=== PATIENT | male | born 1955 | race Caucasian/White ===

== ENCOUNTER 2019-04-05 08:20 | Inpatient (IN) ==
--- NOTE | 2019-04-05 09:16 | Diag Imaging Result Doc PS360 ---
CHEST-2 VIEWS - 04/05/2019 INDICATION: cough COMPARISON: 11/23/2017 FINDINGS: There is a large right pleural effusion, with about two thirds of the mid thorax occupied. The remaining right lung demonstrates diffuse infiltrate that is nonspecific. There is a small focal infiltrate in the lateral left midlung. No large left pleural effusion. No mediastinal shift. Heart size is grossly normal. IMPRESSION: Nonspecific findings. Electronically signed by Baldo Brown 04/05/2019 9:14 AM
[2019-04-05] MEDS ORDERED: NS 1,000 ML IV ONE (10:11)
[2019-04-05] MEDS ORDERED: ZOSYN 4.5 GM in NS 100 ML IV ONE (10:11)
[2019-04-05] MEDS ORDERED: DUONEB (A & A) INH ONE (10:11)
[2019-04-05 11:17] LABS: HEMATOCRIT 34.4 % (42.0-52.0); HEMOGLOBIN 11.1 g/dL (14.0-18.0); LYMPH# 0.54 X1000 (1.2-3.4); LYMPH% 9.5 % (20.5-51.1); MCH 29.6 PG (27-31); MCHC 32.3 g/dL (33-37); MCV 91.7 FL (81-99); MONO# 0.43 X1000 (0.11-0.59); MONO% 7.6 % (1.7-9.3); MPV 10.5 FL (7.4-10.4); NEUT# 4.72 X1000 (1.4-6.5); NEUT% 82.9 % (42.2-75.2); PLT 153 X1000 (130-400); RBC 3.75 XMIL (4.7-6.1); WBC 5.69 X1000 (4.8-10.8)
[2019-04-05 11:28] LABS: INR 1.26
--- NOTE | 2019-04-05 11:47 | EKG Report ---
Test Performed on : 04/05/2019 11:14:24 AM Test Reason : cough Blood Pressure : / mmHG Vent. Rate : 098 BPM Atrial Rate : 098 BPM P-R Int : 114 ms QRS Dur : 092 ms QT Int : 324 ms P-R-T Axes : 043 081 -37 degrees QTc Int : 413 ms Normal sinus rhythm. Possible Left atrial enlargement Nonspecific T wave abnormality Abnormal ECG When compared with ECG of 18-NOV-2017 23:36, No significant change was found Unconfirmed Result
[2019-04-05 11:53] LABS: ESTIMATED GFR > 60
[2019-04-05 11:59] LABS: AGAP 10; ALB/GLOB RATIO 1.1; ALBUMIN 3.7 g/dL (3.5-5.0); ALKALINE PHOSPHATASE 500 U/L (32-122); BUN 9 mg/dL (8-22); CALCIUM 8.9 mg/dL (8.8-10.2); CHLORIDE 82 mmol/L (98-107); COSMO 245; CREATININE 0.4 mg/dL (0.7-1.2); GLUCOSE 110 mg/dL (70-104); GOT 26 U/L (10-34); GPT 20 U/L (10-44); POTASSIUM 4.2 mmol/L (3.5-5.1); SODIUM 122 mmol/L (136-145); TCO2 30 mmol/L (25-35); TOTAL BILIRUBIN 0.88 mg/dL (0.20-1.00); TOTAL PROTEIN 7.2 g/dL (6.3-8.3)
[2019-04-05 12:50] LABS: URINE SOURCE CATH
[2019-04-05 12:52] LABS: BILIRUBIN URINE NEGATIVE (NEGATIVE); BLOOD URINE NEGATIVE (NEGATIVE); COLOR YELLOW; GLUCOSE URINE NEGATIVE (NEGATIVE); KETONE URINE 20 mg/dL (NEGATIVE); LEUKOCYTES URINE NEGATIVE (NEGATIVE); NITRITE URINE NEGATIVE (NEGATIVE); PH URINE 7.5; PROTEIN URINE TRACE mg/dL (NEGATIVE); SP GRAVITY URINE 1.016; TURBIDITY URINE HAZY (CLEAR); UROBILINOGEN URINE 3 mg/dL (NORMAL)
[2019-04-05 13:04] LABS: UR EPITHELIAL CELLS <10 /HPF (<10); URINE BACTERIA NEGATIVE /HPF; URINE RBC <10 /HPF (<10); URINE WBC <10 /HPF (<10)
[2019-04-05 13:08] LABS: URINE YEAST NONE SEEN
[2019-04-05 13:09] LABS: URINE CASTS NONE SEEN; URINE CRYSTALS NONE SEEN
[2019-04-05] MEDS ORDERED: ASPIRIN PR ONE (13:11)
[2019-04-05] MEDS ORDERED: LASIX IV ONE (13:11)
--- NOTE | 2019-04-05 13:25 | PROVIDER DOCUMENTATION ---
This chart was entered by Susana Dave Scribe, acting as scribe for Elver Ordonez MD. HPI-Respiratory General - General Chief Complaint: Cold Symptoms Stated Complaint: COUGHING,LOW GRADE FEVER,INCREASE PULSE Time Seen by Provider: 04/05/19 09:02 Source: patient, other ([facility] premium representative) Allergies/Adverse Reactions: Patient Allergies Allergy/AdvReac Type Severity Reaction Status Date / Time No Known Allergies Allergy Verified 05/14/18 14:24 Home Medications: Home Medication List Medication Instructions Recorded Confirmed Last Taken Type Calcium Citrate/Vitamin D3 1 each PEG DAILY 03/02/16 05/14/18 05/18/18 08:00 History [Citracal + D Maximum Caplet] Doxepin [Sinequan] 50 mg PEG QPM 12/04/16 05/14/18 05/18/18 21:00 History Metoclopramide [Reglan Liquid] 5 mg PEG 4XDAY 12/04/16 05/14/18 12/04/16 08:00 History Ranitidine HCl [Zantac] 150 mg PEG BID 12/04/16 05/14/18 05/18/18 21:00 History Guaifen/Dextromethorphan/PE 180 ml PEG PRN PRN 11/18/17 05/14/18 05/18/18 21:00 History [Mucinex Fast-Max Congest-Cough] Loratadine [Claritin] 10 mg PEG DAILY 11/18/17 05/14/18 05/18/18 08:00 History Montelukast Sodium [Singulair] 10 mg PEG DAILY 11/18/17 05/14/18 05/18/18 08:00 History Quetiapine Fumarate [Seroquel] 25 mg PEG QHS 11/18/17 05/14/18 05/18/18 21:00 History Tamsulosin [Flomax] 0.4 mg PO DAILY 11/18/17 05/14/18 05/18/18 08:00 History Albuterol 2.5MG/Ipratrop 0.5MG 3 ml INH Q6H PRN PRN #60 neb 11/26/17 05/14/18 05/18/18 08:00 Rx [Duoneb (A & A)] Alendronate [Fosamax] 70 mg PEG Q7D@00 05/14/18 05/14/18 05/18/18 21:00 History Furosemide [Lasix] 20 mg PEG DAILY 05/14/18 05/14/18 05/18/18 08:00 History Potassium Chloride 10% Liquid 10 meq PEG DAILY 05/14/18 05/14/18 05/18/18 08:00 History - History of Present Illness-Resp Nature of Presenting Problem: Pt is a 63 yowm with special needs brought to the ED with c/o cough that with disability cannot is not productive, congestion, increased resp. rate, increased pulse, low grade temp., no urine output since 12pm 03/04/2019, lethargic and only taking half feedings. Pt has arm and leg contractions and uses a wheelchair. Pt is thin, pale and with dry skin but nontoxic in appearance. Severity in ED: reports: mild Onset/Duration: reports: abrupt, 24 hours ago Timing: reports: still present, getting worse Exposure: reports: unknown cause Cough Quality/Degree: reports: moderate, productive cough (with disability cannot cough up sputum) Current Respiratory Medication Therapy: Initiated see nurses note Modifying Factors: worse with: coughing Associated Symptoms: reports: cough, fever/chills, nasal congestion Similar Symptoms Previously?: No Recently seen or treated by another doctor?: Yes (nurse at [facility] this am) Review of Systems - Adult - REVIEW OF SYSTEMS - ADULT ROS:: [facility] premium representative Constitutional: reports: see HPI, fever Eyes: reports: no symptoms reported Ears, Nose, Mouth & Throat: reports: see HPI, other (congestion) Cardiovascular: reports: see HPI. denies: syncope Respiratory: reports: cough, wheezing Gastrointestinal: denies: diarrhea, vomiting Genitourinary: reports: no symptoms reported Musculoskeletal: reports: no symptoms reported Integumentary: reports: no symptoms reported Neurological: reports: no symptoms reported Psychiatric: reports: no symptoms reported Endocrine: reports: no symptoms reported Hematologic/Lymphatic: reports: no symptoms reported Allergic/Immunologic: reports: no symptoms reported Past History - Adult - PAST MEDICAL HISTORY-ADULT Review of Records: reports: Old Records Reviewed, Nursing Assessment Review, Medications Reviewed, Social history reviewed & non-contributory. Major Childhood Illnesses: reports: denies history Cardiovascular: reports: HTN Respiratory: reports: other (hx aspiration) Gastrointestinal: reports: GERD, other Obstetrical/Gynecological: reports: denies history Genitourinary: reports: denies history Musculoskeletal: reports: denies history Neurological: reports: other Endocrine/Immune: reports: denies history Other Conditions: reports: denies history - PRIOR SURGERIES/PROCEDURES Surgical/Procedure History: reports: other (PEG) - IMMUNIZATION STATUS Childhood Immunizations: See Nurse Assessment Flu Vaccine: See Nurse Assessment - FAMILY HISTORY Family History: reviewed, not pertinent - SOCIAL HISTORY Smoking: non-smoker Living Situation: care facility ([facility]) Physical Exam-General - PHYSICAL EXAM-ADULT Initial Vital Signs Reviewed: Yes (HR 104) - CONSTITUTIONAL General Appearance: alert, no apparent distress, thin, lethargic - EYES Eyes: PERRL/EOMI - HEAD, EARS, NOSE, MOUTH & THROAT HENMT: normocephalic/atraumatic - NECK Neck: normal inspection - RESPIRATORY Respiratory: rhonchi (all lobes), wheezing (with aspiration and inspiration) - CARDIOVASCULAR Cardiovascular: normal peripheral pulses, tachycardia, other (tachypneic) - GASTROINTESTINAL (ABDOMEN) Abdominal Exam: non tender, other (picc tube LUQ) - MUSCULOSKELETAL Extremity: other (arm and leg contractions) - SKIN Integumentary: warm/dry, pallor - PSYCHIATRIC Psych/Mental Status: other (pt is intellectuallly disabled) Progress - PLAN OF CARE/RESULTS Progress/Plan/Lab Results: Vital Signs - 8 hr 04/05/19 08:38 04/05/19 10:59 Temperature 99.0 F Pulse Rate 104 H 98 H Respiratory Rate 19 18 Blood Pressure 117/74 O2 Sat by Pulse Oximetry 96 94 L 04/05/19 08:44 Influenza Screen - Final Nasopharyngeal Laboratory Results - last 24 hr 04/05/19 04/05/19 04/05/19 11:00 11:00 11:00 WBC RBC Hgb Hct MCV MCH MCHC RDW Std Deviation Plt Count MPV Immature Gran % (Auto) Neut % (Auto) Lymph % (Auto) [place] % (Auto) Eos % (Auto) Baso % (Auto) Immature Gran # (Auto) Neut # (Auto) Lymph # (Auto) [place] # (Auto) Eos # (Auto) Baso # (Auto) PT INR Sodium 122 L Potassium 4.2 Chloride 82 L Carbon Dioxide 30 Anion Gap 10 BUN 9 Creatinine 0.4 L Estimated GFR/1.73 m2 > 60 BUN/Creatinine Ratio 23 Glucose 110 H Calculated Osmolality 245 Calcium 8.9 Total Bilirubin 0.88 AST 26 ALT 20 Alkaline Phosphatase 500 H Troponin T High Sens Pmc-Z-Svzpchxsqnd Pept 584 H Total Protein 7.2 Albumin 3.7 Globulin 3.5 Albumin/Globulin Ratio 1.1 Plasma Lactate 2.1 Urine Source Urine Color Urine Turbidity Urine pH Ur Specific [place] Urine Protein Ur Glucose (Stick) Ur Ketones (Stick) Urine Blood Urine Nitrite Urine Bilirubin Urobilinogen Dipstick Urine Leukocytes Urine WBC (Auto) Urine RBC (Auto) U Epithel Cells (Auto) Urine Bacteria (Auto) Urine Crystals Small Round Cells Urine Casts Urine Yeast-like Cells 04/05/19 04/05/19 04/05/19 11:00 11:00 11:00 WBC 5.69 RBC 3.75 L Hgb 11.1 L Hct 34.4 L MCV 91.7 MCH 29.6 MCHC 32.3 L RDW Std Deviation 14.0 Plt Count 153 MPV 10.5 H Immature Gran % (Auto) 0.0 Neut % (Auto) 82.9 H Lymph % (Auto) 9.5 L [place] % (Auto) 7.6 Eos % (Auto) 0.0 Baso % (Auto) 0.0 Immature Gran # (Auto) 0.00 Neut # (Auto) 4.72 Lymph # (Auto) 0.54 L [place] # (Auto) 0.43 Eos # (Auto) 0.00 Baso # (Auto) 0.00 PT 16.0 INR 1.26 Sodium Potassium Chloride Carbon Dioxide Anion Gap BUN Creatinine Estimated GFR/1.73 m2 BUN/Creatinine Ratio Glucose Calculated Osmolality Calcium Total Bilirubin AST ALT Alkaline Phosphatase Troponin T High Sens 35 H Cij-O-Leauivwxcwa Pept Total Protein Albumin Globulin Albumin/Globulin Ratio Plasma Lactate Urine Source Urine Color Urine Turbidity Urine pH Ur Specific [place] Urine Protein Ur Glucose (Stick) Ur Ketones (Stick) Urine Blood Urine Nitrite Urine Bilirubin Urobilinogen Dipstick Urine Leukocytes Urine WBC (Auto) Urine RBC (Auto) U Epithel Cells (Auto) Urine Bacteria (Auto) Urine Crystals Small Round Cells Urine Casts Urine Yeast-like Cells 04/05/19 12:40 WBC RBC Hgb Hct MCV MCH MCHC RDW Std Deviation Plt Count MPV Immature Gran % (Auto) Neut % (Auto) Lymph % (Auto) [place] % (Auto) Eos % (Auto) Baso % (Auto) Immature Gran # (Auto) Neut # (Auto) Lymph # (Auto) [place] # (Auto) Eos # (Auto) Baso # (Auto) PT INR Sodium Potassium Chloride Carbon Dioxide Anion Gap BUN Creatinine Estimated GFR/1.73 m2 BUN/Creatinine Ratio Glucose Calculated Osmolality Calcium Total Bilirubin AST ALT Alkaline Phosphatase Troponin T High Sens Ilu-J-Ttahqkvdwxm Pept Total Protein Albumin Globulin Albumin/Globulin Ratio Plasma Lactate Urine Source CATH Urine Color YELLOW Urine Turbidity HAZY Urine pH 7.5 Ur Specific [place] 1.016 Urine Protein TRACE A Ur Glucose (Stick) NEGATIVE Ur Ketones (Stick) 20 A Urine Blood NEGATIVE Urine Nitrite NEGATIVE Urine Bilirubin NEGATIVE Urobilinogen Dipstick 3 A Urine Leukocytes NEGATIVE Urine WBC (Auto) <10 Urine RBC (Auto) <10 U Epithel Cells (Auto) <10 Urine Bacteria (Auto) NEGATIVE Urine Crystals NONE SEEN Small Round Cells Not Reportable Urine Casts NONE SEEN Urine Yeast-like Cells NONE SEEN Orders Category Date Time Status Higgins Cath Insertion ORDERED Care 04/05/19 11:11 Active Nursing- Obtain EKG once Care 04/05/19 10:11 Active CHEST-2 VIEWS [RAD] Stat Exams 04/05/19 08:44 Completed BLOOD CULTURE [BLDCUL] Stat Lab 04/05/19 11:18 Results CBC WITH ELECTRONIC DIFF [HEME] Stat Lab 04/05/19 11:00 Completed COMPREHENSIVE METABOLIC PANEL [CHEM] Stat Lab 04/05/19 11:00 Completed DIRECT STREP Stat Lab 04/05/19 08:44 Ordered INFLUENZA SCREEN A/B Stat Lab 04/05/19 08:44 Completed LACTATE, PLASMA [CHEM] Stat Lab 04/05/19 11:00 Completed PRO B-NATRIURETIC PEPTIDE Stat Lab 04/05/19 11:00 Completed PROTIME WITH INR [COAG] Stat Lab 04/05/19 11:00 Completed TROPONIN T HIGH SENSITIVITY Stat Lab 04/05/19 11:00 Completed URINALYSIS W/POSS RFLX CULT [URINALYSIS] Stat Lab 04/05/19 12:40 Completed URINE MANUAL MICROSCOPIC [URINALYSIS] Stat Lab 04/05/19 12:40 Completed 0.9% Sodium Chloride Inj [Ns] 1,000 ml Med 04/05/19 10:11 Discontinued IV 999 mls/hr Albuterol 2.5MG/Ipratrop 0.5MG [Duoneb (A & A)] Med 04/05/19 10:11 Discontinued 3 ml INH NOW ONE Aspirin Med 04/05/19 13:11 Discontinued 300 mg AK NOW ONE Furosemide [Lasix] Med 04/05/19 13:11 Discontinued 20 mg IV NOW ONE Piperacillin/Tazobactam [Zosyn] 4.5 gm Med 04/05/19 10:11 Discontinued 0.9% Sodium Chloride Inj [Ns] 100 ml IV NOW Aerosol Treatments Routine Oth 04/05/19 10:12 Completed Aerosol Treatments Stat Oth 04/05/19 10:12 Completed EKG [EKG] Stat Ther 04/05/19 10:11 Draft Result Diagrams: 04/05/19 11:00 04/05/19 11:00 - REASSESSMENT Reassessment #1 Time Reassessed: 13:14 Status: improving (GIven duoneb, Oxygen, zosyn for PNE, also given lasix for chf exacerbation and asa suppository) - EKG 1 Time of EKG reading by physician:: 11:24 EKG Read and Signed by:: Elver Ordonez EKG Interpretation (*Must complete 3 of following elements*): Abnormal Rate: 98 Rhythm: NSR Comments: LAE; LAD high voltage - XRAY 1 XRAY Study: Chest Impression: See EMR Report (CHEST-2 VIEWS - 04/05/2019 INDICATION: cough COMPARISON: 11/23/2017 FINDINGS: There is a large right pleural effusion, with about two thirds of the mid thorax occupied. The remaining right lung demonstrates diffuse infiltrate that is nonspecific. There is a small focal infiltrate in the lateral left midlung. No large left pleural effusion. No mediastinal shift. Heart size is grossly normal. IMPRESSION: Nonspecific findings. Electronically signed by Baldo Brown 04/05/2019 9:14 AM 04/05/19 0914 Interpreting Physician: Baldo Brown MD Dictated Date/Time: 04/05/19 0911 cc: Elver Ordonez MD; Arnoldo Horvath MD) - CONSULTS/PCP/HOSPITALIST Notification #1 *Consult/PCP/Hospitalist*: Arnoldo Horvath paged at 1313 Time Discussed: 13:20 Consult Disposition: Admit (requested I write admission orders) Departure - Departure Date of Disposition Decision: 04/05/19 Time of Disposition Decision: 13:14 DIAGNOSIS: Hyponatremia syndrome, Do not resuscitate status Pneumonia, aspiration Qualifiers: Aspiration pneumonia type: due to gastric secretions Laterality: bilateral Lung location: unspecified part of lung Qualified Code(s): J69.0 - Pneumonitis due to inhalation of food and vomit CHF exacerbation Qualifiers: Heart failure type: diastolic Qualified Code(s): I50.33 - Acute on chronic diastolic (congestive) heart failure Disposition: ADMITTED INPATIENT 09 Certified Medical Emergency: Emergent Condition: Stable Referrals and Follow-Ups: Arnoldo Horvath MD [Primary Care Provider] - - Critical Care Note This patient required my direct & personal management of CC.: Yes Total Time (mins): 35 Critical Care Statement: This patient required my direct personal management to treat or rule out processes, the absence of which, could potentiallly result in sudden, clinically significant life or limb threatening deterioration. Attestation - Physician/ PILAR Attestation Patient care was provided by Advanced Practice Provider:: No The physician spent face to face time with patient:: Yes Advanced Practice Provider documentation review:: Supervising physician onsite and consulted in the evaluation and care of this patient. The physician did have a face to face encounter with the patient. This chart was documented by the indicated scribe, (Susana Dave, Ever[place]) and accurately reflects the services I performed and decisions made by me, Elver Ordonez MD, as attested by the provider's signature.
[2019-04-05] MEDS ORDERED: ZOFRAN IV PRN (13:26)
[2019-04-05] MEDS: LASIX IV SCH (13:45)
[2019-04-05] MEDS: ZOSYN 3.375 GM in NS 50 ML IV SCH ×2 (16:00→22:13)
[2019-04-05] MEDS: DUONEB (A & A) INH SCH ×3 (16:05→23:11)
--- NOTE | 2019-04-05 18:15 | HISTORY AND PHYSICAL ---
CHIEF COMPLAINT: Lethargy and cough. HISTORY OF PRESENT ILLNESS: This is one of numerous [facility] admissions for this 63-year- old white man with mental retardation, and mostly bedridden. Over the past few days, he has become weaker and lethargic. He receives tube feedings daily. He has had a moderate cough for a couple of days. He has been to the emergency room on 1 other occasion a few days ago. Today he presented with continued weakness. Chest x-ray showed a right pleural effusion and probable pneumonia. Also, there were signs of congestive heart failure. LABORATORY: Indicated white blood count 5700, hematocrit 34.4. ProBNP 584. Troponin T 35, elevated. Alkaline phosphatase was elevated to 500. BUN and creatinine were 9 and 0.4 respectively. Sodium was 122. He is admitted for further evaluation and treatment, including intravenous Lasix and intravenous antibiotics. Discussion is made with caregivers, and a decision had been previously made to make him a DO NOT RESUSCITATE level 1. He was in the emergency room 02/04/2019 after pulling out his feeding tube. This happened on several other occasions. He had a right pleural effusion as early as January 2016. There has been no recent surgery. PRESENT MEDICATIONS: Albuterol every 6 hours, alendronate 70 mg per PEG once weekly, Citracal plus D 1 daily, doxepin 50 mg per PEG daily every evening., Nexium 20 mg 1 daily, Lasix 20 mg daily, Claritin 10 mg 1 daily, Raglan 5 mg per PEG 4 times daily, mirtazapine 15 mg at bedtime, MiraLAX 17 g daily, potassium chloride 10 mEq daily, Seroquel 25 mg at bedtime, Requip 0.5 mg at bedtime, tamsulosin 0.4 mg daily. ALLERGIES: None known. REVIEW OF SYSTEMS: Progressive weight loss and malnutrition over the past several months. He has had inflammatory pericarditis in the past. He is in a senior living for retarded adults. Both of his parents have . PHYSICAL EXAMINATION: VITAL SIGNS: Temperature 98.5, heart rate 98, respirations 17, blood pressure 119/66, O2 saturation on room air 95%. GENERAL: Patient is a weak, lethargic, white man, nonverbal, in no apparent distress. HEENT: Pupils equal, round, and reactive to light. Pharynx benign. NECK: Supple with no mass or lymphadenopathy. HEART: Regular in rate and rhythm with no murmur, rub or gallop. LUNGS: Decreased breath sounds at the right base. Otherwise fairly clear. ABDOMEN: Soft and scaphoid. He is cachectic with decrease in musculature over the shoulder girdles, hands, hips and legs. RECTAL: Deferred. NEUROLOGICAL: Generalized weakness. IMPRESSION: 1. Right lower lobe pneumonia. 2. Congestive heart failure. 3. Right pleural effusion. PLAN: Continue intravenous antibiotics started in the ER. Nebulizer treatments will be continued as well as tube feedings with Jevity. Lasix is given IV. Blood cultures were done in the emergency room. Urinalysis revealed no significant pyuria. cc: Arnoldo Horvath MD
[2019-04-06] MEDS: LASIX IV SCH ×2 (02:40→13:43)
[2019-04-06] MEDS: DUONEB (A & A) INH SCH ×6 (03:35→23:21)
[2019-04-06] MEDS: ZOSYN 3.375 GM in NS 50 ML IV SCH ×4 (04:14→22:14)
[2019-04-06] MEDS ORDERED: MILK OF MAGNESIA PO ONE (08:28)
[2019-04-06] MEDS ORDERED: DULCOLAX PR ONE (08:29)
--- NOTE | 2019-04-06 08:46 | PROGRESS NOTE ---
DATE: 04/06/2019 OBJECTIVE: Vital signs temperature 98.5 degrees, heart rate 95, respirations 27, blood pressure 125/71, O2 saturation 98% by mask. Patient later had 96% O2 saturation on room air. His residuals have increased on gastric contents. It was 200 mL this morning. Tube feedings are held temporarily. According to assisted caregivers, his tube feedings have been decreased recently because of increasing residuals. He also has had constipation at times in the past. Chest is clear. Abdomen soft. PLAN: KUB and right lateral decubitus chest x-ray this morning. He will be given milk of magnesia and Dulcolax suppository. Physical Therapy will be asked to assist with range of motion exercises. Dr. Goss was consulted to evaluate from a pulmonary standpoint. cc: Arnoldo Horvath MD
--- NOTE | 2019-04-06 08:50 | Diag Imaging Result Doc PS360 ---
KUB ABDOMEN - 04/06/2019 INDICATION: constipation COMPARISON: 02/04/2019 FINDINGS: There is a G-tube in good position in the stomach. There is a Higgins catheter in the urinary bladder. No bowel obstruction or free air. No constipation. IMPRESSION: No acute disease. Electronically signed by Baldo Brown 04/06/2019 8:47 AM
--- NOTE | 2019-04-06 08:52 | Diag Imaging Result Doc PS360 ---
LAT DECUBITUS CHEST VIEW-RIGHT - 04/06/2019 INDICATION: right pleural effusion TECHNIQUE: [id number] frontal chest x-ray COMPARISON: 04/05/2019 FINDINGS: There is a large right pleural effusion which has not changed in configuration. The left lung is grossly clear. IMPRESSION: No change from prior. Electronically signed by Baldo Brown 04/06/2019 8:50 AM
[2019-04-06] MEDS: REGLAN LIQUID PO SCH ×2 (17:55→22:14)
--- NOTE | 2019-04-07 00:40 | PULMONOLOGY CONSULTATION ---
DATE: 04/06/2019 REQUESTING PHYSICIAN: Dr. Arnoldo Horvath. REASON FOR CONSULTATION: Pleural effusion. HISTORY OF PRESENT ILLNESS: Mr. Jacobsen is a 63-year-old male with significant mental limitations, who is bed-bound and lives in a correction. The patient previously failed a swallowing study and is fed by a feeding tube. Over the last several days, he has had some cough and is not tolerating all of his feedings. He presented to the emergency room for additional evaluation and treatment. Chest x-ray was performed which reveals a large right-sided pleural effusion. He was admitted for additional evaluation and management. PAST MEDICAL HISTORY: 1. Mental retardation. 2. History of prior pleural effusions. 3. Pericarditis. 4. Dysphagia. 5. Aspiration status post PEG tube placement. SOCIAL HISTORY: No alcohol or tobacco. He currently resides in a correction. His family lives in [place], but by report, a nurse that cares for him is his power of senior attorney. PHYSICAL EXAMINATION: General: Reveals a frail, chronically ill-appearing male who weighs 87 pounds and has a BMI of 14.6, BP 125/69, heart rate 27, oxygen saturation 100%. The patient has been afebrile during this hospital stay. HEENT: Mild bitemporal wasting. Right pupil is dilated, left pupil is slightly constricted. Oropharynx appears dry. Neck: Supple. Chest: Reveals decreased breath sounds right base. Cardiac: Regular rate. Normal S1 normal S2. Abdomen: Soft. Extremities: Without edema. LABORATORIES: Sodium 122, potassium 4.2, chloride 82, bicarbonate 30, BUN 9, creatinine 0.4. ProBNP is 584. White blood count 5.69, hemoglobin 11.1, platelet count 153,000. IMPRESSION: A 63-year-old with: 1. Pleural effusion. 2. History of pericarditis. 3. Benign prostatic hypertrophy. The patient had a Higgins catheter placed and subsequently had out 4000 mL over 24 hours. 4. History of mild left ventricle dysfunction. DISCUSSION: A 63-year-old with problems outlined above. The patient has had prior echocardiogram, which revealed mild LV dysfunction and previous CT scan did reveal some calcium around the pericardium. 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 However, he does likely have a component of BPH and has had good urine output. The patient is not febrile and his white blood count has been normal. I would delay thoracentesis at this juncture given his relatively comfortable status. PLAN: 1. Echocardiogram. 2. CT scan of the thorax. 3. Continue Higgins catheter for BPH. 4. Additional recommendations pending hospital course. cc: MD Arnoldo Torres MD
[2019-04-07] MEDS: LASIX IV SCH ×2 (01:33→15:16)
[2019-04-07] MEDS: DUONEB (A & A) INH SCH ×5 (03:22→19:50)
[2019-04-07] MEDS: ZOSYN 3.375 GM in NS 50 ML IV SCH ×4 (04:33→22:37)
--- NOTE | 2019-04-07 09:27 | Diag Imaging Result Doc PS360 ---
EXAM: CT THORAX W/CONTRAST INDICATION: effusion TECHNIQUE: This exam was performed using automated exposure control, adjustment of mA or kV according to patient size, and/or use of iterative reconstruction technique. COMPARISON: 11/18/2017 FINDINGS: There is a large pleural fluid collection on the right that has increased in size since the previous study. There is also pleural thickening adjacent to the fluid collection indicating that it is loculated, which was not the case previously. There is associated significant atelectasis involving the right lung. There is superimposed patchy groundglass airspace infiltrate in the right upper lobe and there is also groundglass infiltrate in the lingular segment of the left upper lobe suggesting pneumonia. There is stable significant pericardial calcifications suggesting chronic pericarditis. No pericardial effusion is appreciated, however. There are a few calcified mediastinal lymph nodes suggesting prior granulomatous disease. There are other shotty borderline prominent mediastinal and hilar lymph nodes that are probably reactive. Limited views of the upper abdomen are essentially unremarkable as imaged. There are a few stable chronic thoracic spine compression deformities. There is no evidence of acute osseous abnormality. IMPRESSION: 1.Large loculated right pleural effusion with adjacent mild pleural thickening and significant right lung atelectasis. 2.Patchy groundglass airspace consolidation in the right upper lobe and the lingular segment of the left upper lobe suggesting pneumonia. 3.Stable pericardial calcification. 4.Other incidental/nonacute findings detailed above. Electronically signed by Mendzoa Banda 04/07/2019 9:24 AM
--- NOTE | 2019-04-07 10:20 | PROGRESS NOTE ---
DATE: 04/07/2019 OBJECTIVE: Vital signs: Temperature 98.1 degrees, heart rate 98, respirations 20, blood pressure 150/82, O2 saturation on room air 96%. General: The patient appears alert. Chest: Reveals decreased breath sounds, right base. CT of his chest revealed large pleural fluid collection on the right, increased in size from the previous study. There is patchy ground-glass airspace infiltrate in the right upper lobe. Dr. Goss desires to wait on thoracentesis due to him doing fairly well. He continues to tolerate tube feedings poorly with increased residual. PLAN: Increase Reglan per PEG to 10 mg q.i.d. Also, dietary consult is made to assist in tube feeding evaluation. cc: Arnoldo Horvath MD
[2019-04-07] MEDS: REGLAN LIQUID PO SCH ×4 (11:10→22:00)
[2019-04-07 11:19] LABS: AGAP 11; BUN 9 mg/dL (8-22); CALCIUM 9.1 mg/dL (8.8-10.2); CHLORIDE 86 mmol/L (98-107); COSMO 258; CREATININE 0.4 mg/dL (0.7-1.2); ESTIMATED GFR > 60; GLUCOSE 99 mg/dL (70-104); MAGNESIUM 2.2 mg/dL (1.5-2.7); PHOSPHORUS 2.9 mg/dL (2.7-4.5); POTASSIUM 3.4 mmol/L (3.5-5.1); SODIUM 129 mmol/L (136-145); TCO2 32 mmol/L (25-35)
[2019-04-07 11:51] LABS: PREALBUMIN 8.2 mg/dL (20-40)
--- NOTE | 2019-04-07 12:45 | ECHO REPORT ---
ORDER DATE: 04/07/2019 INDICATION: History of heart failure, pericarditis. FINDINGS: 1. The right atrium appears mildly enlarged. 2. Trace tricuspid regurgitation. Insufficient data to estimate RV systolic pressure. 3. The right ventricle is poorly visualized. Probable normal RV systolic function. 4. No significant pulmonic insufficiency. 5. Moderate left atrial enlargement with a volume index of 35. 6. No mitral valve prolapse. Mild mitral regurgitation. No mitral stenosis. 7. Normal LV size, end-diastolic dimension of 4.1 cm. Normal wall thicknesses with an interventricular septal thickness of 1 cm. The ejection fraction is difficult to estimate in this patient, it is estimated around 40%. Notably, the patient had an ejection fraction in 2016 of 45 to 50 percent. There is mild global hypokinesis. I would consider repetition of the study with Definity echo contrast in the future. 8. The aortic valve opens well. It is sclerotic, mild insufficiency. The valve is trileaflet. No stenosis. 9. The aorta appears normal in visualized segments. 10. No pericardial effusion is seen. There is a large pleural effusion. 11. The IVC does appear to be dilated. There was no clear evidence of collapse on this study. 12. Indeterminate diastolic function. cc: MD Evens Pool MD Robert Allen, MD
[2019-04-07] MEDS ORDERED: BLISTEX MEDICATED BERRY LIP BALM TOP PRN (15:20)
[2019-04-07 16:55] LABS: AGAP 11; ALB/GLOB RATIO 0.8; ALBUMIN 3.3 g/dL (3.5-5.0); ALKALINE PHOSPHATASE 440 U/L (32-122); BUN 10 mg/dL (8-22); CALCIUM 9.2 mg/dL (8.8-10.2); CHLORIDE 88 mmol/L (98-107); COSMO 269; CREATININE 0.3 mg/dL (0.7-1.2); ESTIMATED GFR > 60; GLUCOSE 160 mg/dL (70-104); GOT 21 U/L (10-34); GPT 20 U/L (10-44); MAGNESIUM 1.9 mg/dL (1.5-2.7); PHOSPHORUS 2.6 mg/dL (2.7-4.5); POTASSIUM 3.3 mmol/L (3.5-5.1); SODIUM 133 mmol/L (136-145); TCO2 34 mmol/L (25-35); TOTAL BILIRUBIN 0.54 mg/dL (0.20-1.00); TOTAL PROTEIN 7.6 g/dL (6.3-8.3)
[2019-04-07] MEDS: SANTYL OINT TOP SCH (18:03)
--- NOTE | 2019-04-07 21:55 | PULMONOLOGY PROGRESS NOTE ---
DATE: 04/07/2019 SUBJECTIVE: The patient is awake and alert. He does follow the examiner during examination. He is nonverbal. He appears to be comfortable. He does not appear to be in pain. OBJECTIVE: Vital Signs: The patient has been afebrile during his entire hospital stay. Blood pressure 135/71, heart rate 95 respiratory rate 18, oxygen saturation 96% on room air. HEENT: Pupils are equal. Oropharynx appears clear. Neck: Is supple. Chest: Reveals diminished breath sounds right base. Cardiac exam: S1, S2. Abdomen: Is soft. Extremities: Are without edema. LABORATORIES: CT scan of the thorax is reviewed. He has a moderate to large right-sided pleural effusion, which is slightly larger than the pleural effusion identified 11/28/2017. Current CT scan does reveal some pleural thickening, which was not seen on prior scan. CT scan also reveals pericardial calcification which has progressed between the 2 scans. Echocardiogram reveals LV dysfunction with an ejection fraction of 40%. Pleural effusion noted. No mention is made of the calcified pericardium. IMPRESSION: A 63-year-old with 1. Pleural effusion. 2. History of pericarditis, now with a partially calcified pericardium. 3. Systolic left ventricular dysfunction. 4. Probable benign prostatic hyperplasia. The patient is 5.7 L negative during this hospitalization following placement of Higgins catheter and utilization of diuretics. DISCUSSION: A 63-year-old with problems outlined above. The patient is at risk for constrictive pericarditis given the radiographic findings. However, he is not a candidate to undergo an aggressive pericardiac given his overall status. The patient also has a pleural effusion which I suspect is chronic. The pleural thickening can be seen on his CT scan. The etiology for the pleural thickening is not clear. However, with the pleural thickening noted, I suspect that the lung may have a pleural rind and therefore, with significant tension or drainage, this would lead to pain. The pleural fluid would likely reoccur. He currently is asymptomatic and I doubt leukocytosis or fevers, we could re-evaluate a thoracentesis at that time. RECOMMENDATION: 1. Continue diuresis as tolerated. 2. Continue observation of pleural fluid for now. cc: MD Arnoldo Torres MD
[2019-04-07] MEDS: POTASSIUM CHLORIDE 20 MEQ/SWI 20 MEQ/100 ML IVPB IV SCH ×2 (22:38→22:39)
[2019-04-08] MEDS: DUONEB (A & A) INH SCH ×7 (00:10→23:12)
[2019-04-08] MEDS: LASIX IV SCH ×2 (02:31→15:08)
[2019-04-08] MEDS: ZOSYN 3.375 GM in NS 50 ML IV SCH ×4 (06:37→23:21)
--- NOTE | 2019-04-08 08:00 | Diag Imaging Result Doc PS360 ---
EXAM: CHEST-PORTABLE INDICATION: right pleural effusion TECHNIQUE: One view COMPARISON: 04/05/2019 FINDINGS: Inspiration appears slightly better than the previous study. The large loculated right pleural effusion appears to be approximately stable given differences in inspiration. Adjacent atelectasis and/or infiltrate on the right is unchanged. There is vague groundglass infiltrate in the left midlung zone that is essentially stable. No new consolidation is identified. Cardiac silhouette is stable. IMPRESSION: Slightly better inspiration. Stable chest, otherwise. Electronically signed by Mendoza Banda 04/08/2019 7:58 AM
--- NOTE | 2019-04-08 08:38 | PROGRESS NOTE ---
DATE: 04/08/2019 SUBJECTIVE/OBJECTIVE: Vital signs are stable with temperature 98 degrees axillary, heart rate 98, respirations 17, blood pressure 135/87, and O2 saturation 100% on room air. Chest x-ray shows a little better inspiration, but no significant change in right lung pleural effusion. Since he is afebrile and there is no leukocytosis, Dr. Goss wants to wait on thoracentesis. There was less residual with tube feedings last night after increase in Reglan. PLAN: Continue supportive care and IV antibiotics, as well as nebulizer treatments. cc: Arnoldo Horvath MD
[2019-04-08] MEDS: SANTYL OINT TOP SCH (10:18)
[2019-04-08] MEDS: REGLAN LIQUID PO SCH ×4 (10:18→23:22)
[2019-04-08] MEDS: TYLENOL LIQUID GT PRN (13:40)
--- NOTE | 2019-04-08 19:46 | Diag Imaging Result Doc PS360 ---
EXAM: CHEST-1 VIEW HISTORY: Positive sepsis protocal TECHNIQUE: Single view COMPARISON: 7:40 AM FINDINGS: The appearance of the chest is unchanged from the one taken earlier today. IMPRESSION: Stable exam. Electronically signed by Familia Hernandez 04/08/2019 7:44 PM
--- NOTE | 2019-04-08 19:57 | PULMONOLOGY PROGRESS NOTE ---
DATE: 04/08/2019 SUBJECTIVE: Mr. Jacobsen is awake and alert, lying in the bed in no distress. He appears to be comfortable. He is nonverbal. OBJECTIVE: Blood pressure is 134/72 with a heart rate of 96, respirations are 16, temperature is 97.9 degrees oral with room air saturations 94 to 100 percent. HEENT: Head is normocephalic, atraumatic. Pupils are equal. Mucous membranes are moist. Neck: Is supple with trachea midline. Cardiovascular: Regular rate and rhythm. S1 and S2 appreciated. No murmurs. He has no lower extremity edema. Peripheral pulses are palpable x4 extremities. Pulmonary: Breath sounds are diminished. Chest rises and falls symmetric with respiration. Gastrointestinal: Abdomen is soft, nondistended, with bowel sounds in all 4 quadrants. LAB: There are no labs today. Chest x-ray reveals better inspiration. Stable chest continued with a loculated right pleural effusion. This is stable. IMPRESSION: A 63-year-old with: 1. Pleural effusion. 2. History of pericarditis, now with partially calcified pericardium. 3. Systolic left ventricular dysfunction. 4. Probable benign prostatic hyperplasia. PLAN: continue with diuresis. follow pleural fluid with chest x-rays The patient is at risk for constrictive pericarditis given the radiographic findings. He is not a candidate to undergo an aggressive pericardiac given his overall status, his pleural effusion that is suspected to be chronic with etiology not clear. He remains asymptomatic with no leukocytosis or fevers. Dictated by AMBER Miranda for Evens Goss MD cc: AMBER Miranda MD Robert Allen, MD MTDD
[2019-04-08 20:34] LABS: BASO# 0.03 X1000 (0.0-0.2); BASO% 0.5 % (0.0-0.8); EOS# 0.05 X1000 (0.0-0.7); EOS% 0.9 % (0.0-10.0); HEMATOCRIT 36.8 % (42.0-52.0); HEMOGLOBIN 11.3 g/dL (14.0-18.0); LYMPH# 0.65 X1000 (1.2-3.4); LYMPH% 11.2 % (20.5-51.1); MCH 29.5 PG (27-31); MCHC 30.7 g/dL (33-37); MCV 96.1 FL (81-99); MONO% 12.1 % (1.7-9.3); MPV 10.2 FL (7.4-10.4); NEUT# 4.37 X1000 (1.4-6.5); NEUT% 75.3 % (42.2-75.2); PLT 250 X1000 (130-400); RBC 3.83 XMIL (4.7-6.1); RDW 14.4 % (11.5-14.5)
[2019-04-08 20:46] LABS: INR 1.14; PROTIME 14.8 Seconds (11.0-16.0); PTT 34.5 Seconds (22.3-41.8)
[2019-04-08 21:28] LABS: AGAP 12; ALBUMIN 3.6 g/dL (3.5-5.0); ALKALINE PHOSPHATASE 454 U/L (32-122); BUN 15 mg/dL (8-22); CALCIUM 9.6 mg/dL (8.8-10.2); CHLORIDE 86 mmol/L (98-107); CK PROFILE 44 U/L (24-204); COSMO 272; CREATININE 0.4 mg/dL (0.7-1.2); ESTIMATED GFR > 60; GLUCOSE 158 mg/dL (70-104); GOT 24 U/L (10-34); GPT 22 U/L (10-44); POTASSIUM 4.2 mmol/L (3.5-5.1); SODIUM 134 mmol/L (136-145); TCO2 36 mmol/L (25-35); TOTAL BILIRUBIN 0.64 mg/dL (0.20-1.00); TOTAL PROTEIN 7.3 g/dL (6.3-8.3)
[2019-04-09] MEDS: LASIX IV SCH ×2 (01:13→15:35)
[2019-04-09] MEDS: DUONEB (A & A) INH SCH ×6 (03:39→23:07)
[2019-04-09 05:09] LABS: URINE SOURCE CATH
[2019-04-09] MEDS: ZOSYN 3.375 GM in NS 50 ML IV SCH ×3 (05:51→17:13)
[2019-04-09 07:24] LABS: BILIRUBIN URINE NEGATIVE (NEGATIVE); BLOOD URINE LARGE (NEGATIVE); COLOR YELLOW; GLUCOSE URINE NEGATIVE (NEGATIVE); KETONE URINE NEGATIVE (NEGATIVE); LEUKOCYTES URINE NEGATIVE (NEGATIVE); NITRITE URINE NEGATIVE (NEGATIVE); PH URINE 6.5; PROTEIN URINE 30 mg/dL (NEGATIVE); SP GRAVITY URINE 1.019; TURBIDITY URINE HAZY (CLEAR); UROBILINOGEN URINE NORMAL (NORMAL)
[2019-04-09 07:32] LABS: UR EPITHELIAL CELLS <10 /HPF (<10); URINE BACTERIA NEGATIVE /HPF; URINE RBC TNTC /HPF (<10); URINE WBC <10 /HPF (<10)
[2019-04-09 07:50] LABS: BASO# 0.02 X1000 (0.0-0.2); BASO% 0.3 % (0.0-0.8); EOS# 0.11 X1000 (0.0-0.7); EOS% 1.7 % (0.0-10.0); HEMOGLOBIN 11.3 g/dL (14.0-18.0); LYMPH# 0.74 X1000 (1.2-3.4); LYMPH% 11.6 % (20.5-51.1); MCHC 29.7 g/dL (33-37); MCV 97.7 FL (81-99); MONO# 0.59 X1000 (0.11-0.59); MONO% 9.2 % (1.7-9.3); MPV 10.2 FL (7.4-10.4); NEUT# 4.94 X1000 (1.4-6.5); NEUT% 77.2 % (42.2-75.2); PLT 254 X1000 (130-400); RBC 3.89 XMIL (4.7-6.1); RDW 14.4 % (11.5-14.5)
[2019-04-09 07:58] LABS: URINE CASTS NONE SEEN; URINE CRYSTALS NONE SEEN; URINE SMALL ROUND CELLS NONE SEEN; URINE YEAST NONE SEEN
[2019-04-09 08:14] LABS: ESTIMATED GFR > 60
[2019-04-09 08:21] LABS: ALBUMIN 3.4 g/dL (3.5-5.0); MAGNESIUM 2.1 mg/dL (1.5-2.7); PHOSPHORUS 4.4 mg/dL (2.7-4.5)
[2019-04-09 08:42] LABS: AGAP 8; BUN 16 mg/dL (8-22); CALCIUM 9.8 mg/dL (8.8-10.2); CHLORIDE 89 mmol/L (98-107); COSMO 278; CREATININE 0.5 mg/dL (0.7-1.2); GLUCOSE 153 mg/dL (70-104); POTASSIUM 3.8 mmol/L (3.5-5.1); SODIUM 137 mmol/L (136-145); TCO2 40 mmol/L (25-35)
--- NOTE | 2019-04-09 09:30 | PROGRESS NOTE ---
DATE: 04/09/2019 SUBJECTIVE: A 63-year-old, white gentleman, admitted with chest congestion, cough. The patient found to have large pleural effusion on CT scan, the patient had pleural thickening. The patient does have underlying mental retardation, history of pericarditis, dysphagia. The patient has a PEG tube. History part was limited. Pulmonary consultation also reviewed. The patient has Higgins catheter. Mild cough. No expectoration. There was streak of blood in the catheter. Past medical history and medications noted. OBJECTIVE: Vital Signs: Blood pressure 140/85, pulse 102, respirations 17, temperature 98.1 degrees. Skin: Senile turgor. Neck: Supple. No JVD. Lungs: Decreased air entry right lung. Cardiovascular: S1 and S2, tachycardia. Abdomen: Soft, scaphoid. PEG tube is in place. Central nervous system: The patient is sleeping but arousable. Uncooperative for detailed exam. LABORATORY DATA: Blood work done today, hemoglobin 11.3, hematocrit 38, WBC count 6.4, platelet count 254,000. Electrolytes: BUN 16, creatinine 0.5. The patient's urinalysis result reviewed. MEDICAL PROBLEMS: Includes right pleural effusion with pleural thickening, systolic left ventricular failure, benign prostatic hypertrophy, history of pericarditis, possible aspiration pneumonia, mild hematuria most likely could be due to trauma. Patient's labs and medication noted. Overall prognosis poor. cc: MD Arnoldo Araujo MD
[2019-04-09] MEDS: REGLAN LIQUID PO SCH ×4 (09:52→21:09)
[2019-04-09] MEDS: SANTYL OINT TOP SCH (09:52)
--- NOTE | 2019-04-09 17:37 | PULMONOLOGY PROGRESS NOTE ---
DATE: 04/09/2019 SUBJECTIVE: Mr. Jacobsen is awake and alert. He is lying in the bed in no distress. He is non verbal. OBJECTIVE: Vital Signs: Blood pressure is 140/80 with a heart rate of 100, respirations are 17, temperature is 98.1 degrees oral with O2 saturations 97% on 2 L nasal cannula. HEENT: Pupils are equal, round, react to light. EOMs are intact. Sclerae are anicteric. Head is normocephalic, atraumatic. Mucous membranes are. Neck: Supple with trachea midline. Cardiovascular: Regular rate and rhythm. S1, S2 appreciated. No murmur. Pulmonary: He has decreased air entry. Chest rises and falls symmetric respiration. No increased work of breathing noted. Gastrointestinal: Abdomen soft, nondistended, nondistended with bowel sounds in all 4 quadrants. LABS: WBC is 6.4 with hemoglobin 11.3, hematocrit 38 and platelets of 254,000. Sodium 137, potassium 3.8, BUN 16, creatinine 0.5 with a glucose of 153. IMPRESSION: This is a 63-year-old male with 1. Pleural effusion. 2. History of pericarditis now with partially calcified pericardium. 3. Systolic left ventricular dysfunction. 4. Probable benign prostatic hyperplasia. PLAN: 1. continue diuresis. 2. continue to follow pleural fluid with chest x-rays. 3. He is at risk for constrictive pericarditis given the radiographic findings. He is not a candidate to undergo an aggressive pericardiac given his overall status, although his pleural effusion is suspected to be chronic with unclear etiology. He does remain asymptomatic with no leukocytosis or fevers. Dictated by AMBER Miranda for Evens Goss MD cc: AMBER Miranda MD Robert Allen, MD [facility]ALL[facility]a
[2019-04-10] MEDS: ZOSYN 3.375 GM in NS 50 ML IV SCH ×4 (00:21→17:43)
[2019-04-10] MEDS: LASIX IV SCH ×2 (02:29→13:19)
[2019-04-10] MEDS: DUONEB (A & A) INH SCH ×6 (03:43→23:45)
--- NOTE | 2019-04-10 09:39 | PROGRESS NOTE ---
DATE: 04/10/2019 SUBJECTIVE: Mr. Jacobsen is doing fair, not able to give any history. According to market research manager, the patient does not seem to be in any distress. OBJECTIVE: Vital Signs: Noted. The patient is tachycardic at times. Neck: Supple. No JVD. Lungs: Decreased air entry, both bases. CVS: S1 and S2. Tachycardia. Abdomen: Soft, scaphoid. PEG tube is in place. The patient does have a left inguinal hernia, which is reducible. BLEACH TESTER: Sleeping, but arousable. O2 saturation ranging from 97% to 99%. CONSIDERATION: 1. Systolic left ventricular failure. 2. Pericarditis. 3. Aspiration pneumonia. 4. Right pleural effusion. 5. Mental retardation. 6. Overall prognosis fair to guarded. Overall plan discussed with the market research manager. I am going to repeat blood work and x-ray tomorrow. cc: MD Arnoldo Araujo MD
[2019-04-10] MEDS: SANTYL OINT TOP SCH (09:45)
[2019-04-10] MEDS: REGLAN LIQUID PO SCH ×4 (09:45→21:16)
[2019-04-10] MEDS: TYLENOL LIQUID GT PRN ×2 (09:56→17:44)
[2019-04-10] MEDS: GENTAMICIN 0.3% OPH DROPS BOTH EYES SCH ×2 (13:19→21:16)
--- NOTE | 2019-04-10 14:30 | PULMONOLOGY PROGRESS NOTE ---
DATE: 04/10/2019 SUBJECTIVE: Mr. Jacobsen is lying in the bed in no distress. He is nonverbal. OBJECTIVE: Vital Signs: Blood pressure is 129/74, heart rate ranging 110 to 115, respirations are 17, temperature is 99 degrees oral, with O2 saturations of 97% to 99% on 2 L nasal cannula. HEENT: Head is normocephalic, atraumatic. Mucous membranes are moist. Pupils are equal, round, react to light. EOMs are intact. Neck: Supple with trachea midline. Cardiovascular: Regular rate and rhythm. S1 and S2 appreciated. No murmur. Pulmonary: He has decreased air entry. Chest rises and falls symmetric with respiration. Gastrointestinal: Abdomen is soft, nontender, nondistended with bowel sounds in all 4 quadrants. LABORATORY DATA: There are no labs for today. IMPRESSION: This is a 63-year-old gentleman with: 1. Pleural effusion. 2. History of pericarditis, now with partially calcified pericardium. 3. Systolic left ventricular dysfunction. 4. Probable benign prostatic hyperplasia. PLAN: Will continue diuresis. Continue to follow chest x-rays. He does remain asymptomatic with no leukocytosis or fevers. Dictated by AMBER Miranda for Evens Goss MD cc: AMBER Miranda MD Robert Allen, MD
[2019-04-11] MEDS: ZOSYN 3.375 GM in NS 50 ML IV SCH ×4 (00:17→17:36)
[2019-04-11] MEDS: LASIX IV SCH ×2 (02:24→13:57)
[2019-04-11] MEDS: DUONEB (A & A) INH SCH ×6 (03:36→23:02)
--- NOTE | 2019-04-11 07:47 | Diag Imaging Result Doc PS360 ---
EXAM: CHEST-1 VIEW INDICATION: sob TECHNIQUE: One view COMPARISON: 04/08/2019 FINDINGS: The patient is rotated toward the right. There is a stable prominent loculated pleural effusion on the right. Adjacent atelectasis and/or infiltrate on the right is unchanged. No new consolidation is identified. Cardiac silhouette is stable. IMPRESSION: Stable chest. Electronically signed by Mendoza Banda 04/11/2019 7:45 AM
[2019-04-11 08:22] LABS: BASO# 0.04 X1000 (0.0-0.2); BASO% 0.4 % (0.0-0.8); EOS# 0.01 X1000 (0.0-0.7); EOS% 0.1 % (0.0-10.0); HEMATOCRIT 40.9 % (42.0-52.0); HEMOGLOBIN 11.8 g/dL (14.0-18.0); IMM GRAN# 0.02 X1000 (0.0-0.04); IMM GRAN% 0.2 % (0.0-0.5); LYMPH# 1.21 X1000 (1.2-3.4); LYMPH% 11.1 % (20.5-51.1); MCH 29.1 PG (27-31); MCHC 28.9 g/dL (33-37); MCV 100.7 FL (81-99); MONO# 0.85 X1000 (0.11-0.59); MONO% 7.8 % (1.7-9.3); MPV 10.2 FL (7.4-10.4); NEUT# 8.73 X1000 (1.4-6.5); NEUT% 80.4 % (42.2-75.2); PLT 273 X1000 (130-400); RBC 4.06 XMIL (4.7-6.1); RDW 14.7 % (11.5-14.5); WBC 10.86 X1000 (4.8-10.8)
--- NOTE | 2019-04-11 08:25 | PROGRESS NOTE ---
DATE: 04/11/2019 VITAL SIGNS: Temperature 97.8 degrees axillary, heart rate 94, respirations 16, blood pressure 124/77, O2 saturation on 2 liters nasal oxygen 90%. X-RAYS: Chest x-ray unchanged with persistent right pleural effusion. LABORATORY: The last laboratory was revealing hemoglobin 11.3, hematocrit 38.0, and white blood count 6400. Sodium was 137, potassium 3.8, BUN 16, creatinine 0.5, glucose 153, albumin 3.4 and plasma lactate 1.0. Blood cultures have revealed no growth at 5 days. Reasoning has been stated by Dr. Goss for not proceeding with thoracentesis. Consideration will be made for [facility] with [facility] oxygen and hospice care. Discussion will be made with the family. Apparently, he has 2 sisters and a brother. Long-term prognosis is poor. cc: Arnoldo Horvath MD
[2019-04-11 08:41] LABS: ESTIMATED GFR > 60
[2019-04-11 08:48] LABS: AGAP 9; ALB/GLOB RATIO 0.7; ALBUMIN 3.3 g/dL (3.5-5.0); ALKALINE PHOSPHATASE 395 U/L (32-122); BUN 24 mg/dL (8-22); CALCIUM 9.9 mg/dL (8.8-10.2); CHLORIDE 92 mmol/L (98-107); COSMO 297; CREATININE 0.5 mg/dL (0.7-1.2); GLUCOSE 143 mg/dL (70-104); GOT 29 U/L (10-34); GPT 22 U/L (10-44); MAGNESIUM 2.3 mg/dL (1.5-2.7); POTASSIUM 3.4 mmol/L (3.5-5.1); SODIUM 146 mmol/L (136-145); TCO2 45 mmol/L (25-35); TOTAL BILIRUBIN 0.72 mg/dL (0.20-1.00); TOTAL PROTEIN 8.2 g/dL (6.3-8.3)
[2019-04-11 08:53] LABS: ANISOCYTOSIS 1+; BANDS 1 % (0-1); LYMPHS 10 % (21-51); MONO 5 % (1-9); SEGS 84 % (42-75)
[2019-04-11 08:54] LABS: POLYCHROM OCCASIONAL
[2019-04-11] MEDS: GENTAMICIN 0.3% OPH DROPS BOTH EYES SCH ×2 (09:04→21:11)
[2019-04-11] MEDS: REGLAN LIQUID PO SCH ×4 (09:04→21:10)
--- NOTE | 2019-04-11 09:49 | EKG Report ---
Test Performed on : 04/11/2019 09:32:05 AM Test Reason : irregular, rapid telemetry readings Blood Pressure : / mmHG Vent. Rate : 124 BPM Atrial Rate : 124 BPM P-R Int : 124 ms QRS Dur : 086 ms QT Int : 300 ms P-R-T Axes : 068 081 016 degrees QTc Int : 431 ms Sinus tachycardia. with occasional premature ventricular complexes. Nonspecific ST and T wave abnormality Abnormal ECG When compared with ECG of 05-APR-2019 11:14, (Unconfirmed) premature ventricular complexes. are now present Confirmed by Davis Tomlin MD ([id number]) on 04/13/2019 5:56:51 PM
[2019-04-11] MEDS: SANTYL OINT TOP SCH (11:22)
[2019-04-11] MEDS: TYLENOL LIQUID GT PRN ×2 (12:01→17:49)
[2019-04-11 12:40] LABS: URINE SOURCE CATH
[2019-04-11 12:47] LABS: BILIRUBIN URINE NEGATIVE (NEGATIVE); BLOOD URINE MODERATE (NEGATIVE); COLOR YELLOW; GLUCOSE URINE NEGATIVE (NEGATIVE); KETONE URINE NEGATIVE (NEGATIVE); LEUKOCYTES URINE TRACE (NEGATIVE); NITRITE URINE NEGATIVE (NEGATIVE); PH URINE 6.5; PROTEIN URINE 100 mg/dL (NEGATIVE); TURBIDITY URINE HAZY (CLEAR); UROBILINOGEN URINE NORMAL (NORMAL)
[2019-04-11 13:04] LABS: UR EPITHELIAL CELLS <10 /HPF (<10); URINE BACTERIA NEGATIVE /HPF; URINE RBC TNTC /HPF (<10); URINE WBC <10 /HPF (<10)
[2019-04-11] MEDS ORDERED: LEVAQUIN 500 MG/D5W 500 MG/100 ML IVPB IV SCH (17:45)
--- NOTE | 2019-04-11 18:23 | PROGRESS NOTE ---
DATE: 04/11/2019 The patient developed a fever with temperature 101.8 degrees axillary this afternoon. He was given Tylenol and current temperature is 99.1 degrees. O2 saturation is 99% on 3 L nasal oxygen. His level of consciousness is decreased. He is lethargic and essentially unresponsive to verbal. Discussion was made with his sister who was in the room. Urinalysis was rechecked and found to have hematuria, but only occasional WBCs. Urine culture was done. Levaquin is started. Discussion is made with sister concerning hospice care. She agrees to this. Hospice consult is obtained. PLAN: Continue comfort measures, symptomatic medicines, and tube feedings. cc: Arnoldo Horvath MD
[2019-04-12] MEDS: ZOSYN 3.375 GM in NS 50 ML IV SCH (00:17)
[2019-04-12] MEDS ORDERED: TYLENOL PR ONE (00:30)
[2019-04-12] MEDS: LASIX IV SCH (02:40)
[2019-04-12] MEDS: DUONEB (A & A) INH SCH ×2 (03:29→08:00)
[2019-04-12 03:48] VITALS: BP 81/42
--- NOTE | 2019-04-12 07:11 | PULMONOLOGY PROGRESS NOTE ---
DATE: 04/11/2019 INTERIM HISTORY: Patient has had a significant decline in the last 24 hours. He is having fevers. He is more somnolent and has mild work of breathing. OBJECTIVE: Vital Signs: Blood pressure 127/78, heart rate 123, respiratory rate 14, oxygen saturation 98% on 3 L. Temperature 100.8 degrees. HEENT: Pupils are equal and reactive. Oropharynx appears dry. Neck: Is supple. Chest: Reveals diminished breath sounds right base with coarse rhonchi. Cardiac exam: S1, S2. Abdomen: Is soft. Extremities: Revealed generalized muscle wasting. LABORATORIES: White blood count 10.86, hemoglobin 11.8, platelet count 273,000. Sodium 146, potassium 3.4, chloride 92, bicarbonate 45, BUN 24, creatinine 0.5. Urinalysis is performed and reveals moderate amount of blood, but less than 10 white blood cells per high-power field. IMPRESSION: 63-year-old with problems outlined above. He has now developed a fever. Urinalysis is clear. He has had a significant decline in his performance status. End of life discussions have been held by Dr. Horvath and his sister would like to pursue hospice. RECOMMENDATIONS: Agree with plan for comfort medications. cc: MD Arnoldo Torres MD
--- NOTE | 2019-04-12 19:30 | DISCHARGE SUMMARY ---
ADMISSION DATE: 04/05/2019 DISCHARGE DATE: 04/12/2019 FINAL DIAGNOSES: 1. Large right pleural effusion. 2. Aspiration pneumonia. 3. Chronic calcific pericarditis. 4. Mental retardation. 5. Protein and calorie malnutrition. 6. Hematuria. HISTORY: This is one of several [facility] admissions for this 63-year-old white man with mental retardation, chronically debilitated and unable to ambulate without assistance and primarily bedridden over the past few weeks. He presented to the emergency room with decline in responsiveness and volume depletion. Chest x-ray showed large right pleural effusion. He was admitted for treatment of pneumonia, mild systolic heart failure, and evaluation of right pleural effusion. INITIAL LABORATORY: White blood count 5700, hematocrit 34.4. ProBNP 584. Troponin 35, alkaline phosphatase 500. BUN 9, creatinine 0.4, sodium 122. HOSPITAL COURSE: He was treated with intravenous antibiotics, Zosyn. Dr. Goss was consulted and felt that if thoracentesis was done the fluid would reaccumulate fairly rapidly. He remained afebrile and with good O2 saturation on room air for several days. Right pleural effusion persisted despite nebulizer treatments and intravenous antibiotics. He developed a fever yesterday and urinalysis revealed hematuria. Urine culture was done and he was started on Levaquin, added to Zosyn. Discussion was made with his sister who understood the serious nature of his decline. Hospice was ordered. The patient had been made a DNR level 1. Respirations and heart rate slowly declined until he was in asystole without respirations at about 530. He was pronounced at 5:32. Organ donation is not felt indicated. cc: Arnoldo Horvath MD
== END 2019-04-12 05:32 | disposition expired | DRG 177 ==
LOC: ED 08:20 → 3N 16:17
PROVIDERS: ADMIT Family Medicine; ATTEND Family Medicine